=== PATIENT | male | born 1970 | race Caucasian/White ===

== ENCOUNTER 2022-07-18 11:03 | Outpatient (CLI) | payer SELFPAY ==
[2022-07-18 13:59] LABS: Albumin* 4.2 g/dL (3.3-5.0); Chloride* 103 mmol/L (96-114); Potassium* 4.3 mmol/L (3.6-5.1); Sodium* 141 mmol/L (135-149)
[2022-07-18 14:01] LABS: Cholesterol* 143 mg/dL (90-199)
[2022-07-18 14:02] LABS: Alanine Aminotransferase* 62 U/L (4-50); Alkaline Phosphatase* 62 U/L (40-150); Aspartate Amino Transferase* 40 U/L (12-35); Bilirubin Total* 0.8 mg/dL (0.1-1.5); Blood Urea Nitrogen* 20 mg/dL (7-30); Carbon Dioxide* 33 mmol/L (20-32); Creatinine* 1.4 mg/dL (0.5-1.5); Estimated Glomerular Filt Rate 60 ml/min; Glucose* 104 mg/dL (60-115); Total Protein* 7.1 g/dL (6.0-8.3); Triglycerides* 88 mg/dL (40-149)
[2022-07-18 14:03] LABS: HDL Cholesterol* 36 mg/dL (>=40); LDL Cholesterol Calculated 89 mg/dL (<100)
[2022-07-18 14:19] LABS: PSA Screen* 0.85 ng/mL (0.10-4.00)
== END 2022-07-18 11:04 | disposition home or self-care (01) ==
PROVIDERS: PCP Family Medicine; Visit Provider Family Medicine
DX: Z00.00 Encounter for general adult medical examination without abnormal findings (principal); Z12.5 Encounter for screening for malignant neoplasm of prostate; Z13.6 Encounter for screening for cardiovascular disorders
CPT/HCPCS: 80053; 80061; 84153

== ENCOUNTER 2022-07-27 16:34 | Outpatient (CLI) | payer OTHER, SELFPAY ==
[2022-07-27 14:10] LABS: Vitamin B12* 401 pg/mL (243-894)
[2022-07-28 19:07] LABS: Sex Hormone Binding Globulin 38 nmol/L (19-76); Testosterone, Adult Male 501 ng/dL (300-890); Testosterone, Free Calculation 88 pg/mL (47-244); Testosterone, Percentage Free 1.8 % (1.6-2.9)
== END 2022-07-27 16:35 | disposition home or self-care (01) ==
PROVIDERS: PCP Family Medicine; Visit Provider Family Medicine
DX: R53.83 Other fatigue (principal)
CPT/HCPCS: 82607; 82652; 84270; 84402; 84403; 84443

== ENCOUNTER 2023-06-28 14:37 | Emergency (ER) | payer OTHER, SELFPAY ==
[2023-06-28 15:30] VITALS: BP 100/67; PULSE 83; RESP 16; TEMP 35.9; O2SAT 94; BMI 35.9
--- NOTE | 2023-06-28 16:56 | ED.HEATRA ---
HPI - Head Injury General Date Seen: 06/28/23 Chief complaint: Head Injury/Pain Stated complaint: Hit on head Time Seen by Provider: 06/28/23 15:56 Source: patient Mode of arrival: ambulatory Limitations: no limitations History of Present Illness HPI Narrative: Patient is a 53-year-old male presenting to the emergency department forehead laceration. States he was walking up some steps on a ladder when he hit his head on some sheet metal that was hanging over. Denies any other injuries. Is not on any blood thinners. Denies lightheadedness, dizziness, headache, weakness, numbness, vision changes. He has no other concerns at this time. Last tetanus shot was 2016. He is otherwise doing well at this time with no other concerns. Related Data Home Medications Medication Instructions Recorded Confirmed ibuprofen 200 mg tablet 200 mg PO Q6H PRN 05/28/23 05/28/23 Previous Rx's Medication Instructions Recorded amlodipine 5 mg tablet (Norvasc) 5 mg PO QDAY #90 tabs 07/23/22 buspirone 7.5 mg tablet 22.5 mg (3 x 7.5 mg) PO BID #540 07/23/22 tabs fluticasone propionate 50 2 spray intranasal QDAY #16 grams 07/23/22 mcg/actuation nasal spray,suspension (Flonase Allergy Relief) nortriptyline 10 mg capsule 20 mg (2 x 10 mg) PO .QHS #180 caps 07/23/22 paroxetine HCl 20 mg tablet 20 mg PO .QHS #90 tabs 07/23/22 potassium chloride 10 mEq 10 meq PO BID #180 caps 07/23/22 capsule,extended release propranolol 60 mg capsule,24 60 mg PO QHS #90 caps 07/23/22 hr,extended release rosuvastatin 5 mg tablet (Crestor) 5 mg PO QDAY #90 tabs 07/23/22 triamterene 37.5 1 cap PO QDAY #90 caps 07/23/22 mg-hydrochlorothiazide 25 mg capsule bupropion HCl 200 mg tablet,12 hr 200 mg PO BID #180 tabs 04/22/23 sustained-release (Wellbutrin SR) Allergies Allergy/AdvReac Type Severity Reaction Status Date / Time peanut oil Allergy Mild Cough Verified 05/28/23 08:30 Penicillins Allergy Mild Unknown Verified 05/28/23 08:30 Review of Systems Narrative: Pertinent systems negative unless stated in HPI PFSH PFSH Medical History Chronic lymphocytic leukemia ?C91.10 - Chronic lymphocytic leukemia of B-cell type not having achieved remission (ICD-10) Encounter for routine history and physical examination of adult ?Z00.00 - Encounter for general adult medical examination without abnormal findings (ICD-10) Nocturia ?R35.1 - Nocturia (ICD-10) Chronic cough ?R05.3 - Chronic cough (ICD-10) Family History Other Valvular heart disease Social History Smoking Status: Never smoker Caffeine: Yes Little interest or pleasure in doing things: several days Feeling down, depressed, or hopeless: several days Exam Narrative: Exam Narrative: Const: Well-nourished, Well-developed, in mild distress Eyes: PERRL, no conjunctival injection, and symmetrical lids HENT: Atraumatic external nose and ears. Moist mucous membranes. 6 cm laceration on scalp MSK:Extremities w/o deformity, Normal Active ROM Skin: Warm, Dry. 6 cm laceration on scalp Neuro: Normal Muscle tone, No focal neurological deficits. Psych: Awake, Alert, & Oriented x3. Appropriate mood and affect. Const: Vital Signs, click to edit/add: Vital Signs - 24 hr 06/28/23 15:30 Temperature 96.7 F L Pulse Rate [Pulse Oximeter] 83 Respiratory Rate 16 Blood Pressure [Ri ght Upper Arm] 100/67 Pulse Oximetry 94 Oxygen Delivery Me thod Room Air Course Vital Signs Vital signs: Initial Vital Signs Temperature 96.7 F L 06/28/23 15:30 Temperature Source Temporal Artery Scan 06/28/23 15:30 Pulse Rate 83 06/28/23 15:30 Respiratory Rate 16 06/28/23 15:30 Blood Pressure 100/67 06/28/23 15:30 Blood Pressure Mean 78 06/28/23 15:30 Pulse Oximetry 94 06/28/23 15:30 Oxygen Delivery Method Room Air 06/28/23 15:30 Vital Signs Temperature 96.7 F L 06/28/23 15:30 Pulse Rate 83 06/28/23 15:30 Respiratory Rate 16 06/28/23 15:30 Blood Pressure 100/67 06/28/23 15:30 Pulse Oximetry 94 06/28/23 15:30 Oxygen Delivery Method Room Air 06/28/23 15:30 Temperature 96.7 F L 06/28/23 15:30 Pulse Rate 83 06/28/23 15:30 Respiratory Rate 16 06/28/23 15:30 Blood Pressure 100/67 06/28/23 15:30 Pulse Oximetry 94 06/28/23 15:30 Oxygen Delivery Method Room Air 06/28/23 15:30 Discharge Plan Discharge Clinical Impression: Laceration Condition: Stable Instructions: Skin Adhesive Care (ED) Additional Instructions: Glue should wear off in about 7 days. For next 6 months, once wears off, whenever you go outside put a dab of sunscreen over the laceration site to improve scar appearance. Topical antibiotics are not necessary at this time and will cause the glue to fall off sooner than we would want. Do not rub this glue to hard and make sure you not accidentally dropped it off. The antibiotics are not necessary at this time Prescriptions: No Action ibuprofen 200 mg tablet 200 mg PO Q6H PRN propranolol 60 mg capsule,extended release 24 hr 60 mg PO QHS Qty: 90 3RF triamterene-hydrochlorothiazid 37.5-25 mg capsule 1 cap PO QDAY Qty: 90 3RF rosuvastatin [Crestor] 5 mg tablet 5 mg PO QDAY Qty: 90 3RF potassium chloride 10 mEq capsule, extended release 10 meq PO BID Qty: 180 3RF paroxetine HCl 20 mg tablet 20 mg PO .QHS Qty: 90 3RF nortriptyline 10 mg capsule 20 mg PO .QHS Qty: 180 3RF buspirone 7.5 mg tablet 22.5 mg PO BID Qty: 540 3RF amlodipine [Norvasc] 5 mg tablet 5 mg PO QDAY Qty: 90 3RF fluticasone propionate [Flonase Allergy Relief] 50 mcg/actuation spray,suspension 2 spray intranasal QDAY Qty: 16 2RF Rx Instructions: administer into each nostril bupropion HCl [Wellbutrin SR] 200 mg tablet sustained-release 12 hr 200 mg PO BID Qty: 180 0RF Follow Up/Referrals: Yandel Vera MD [Primary Care Provider] - Stand Alone Forms: [facility] Info Instructions
== END 2023-06-28 17:14 | disposition home or self-care (01) ==
LOC: ED 17:06
PROVIDERS: Emergency Provider Student in an Organized Health Care Education/Training Program; PCP Family Medicine
DX: S01.01XA Laceration without foreign body of scalp, initial encounter (principal); W26.9XXA Contact with unspecified sharp object(s), initial encounter
CPT/HCPCS: 12002; 99282; 99283

== ENCOUNTER 2023-08-20 09:08 | Outpatient (RCR) | payer OTHER, SELFPAY ==
[2023-05-28 08:22] LABS: Hematocrit* 50.3 % (37.0-53.0); Hemoglobin* 16.7 gm/dL (13.5-17.5); Lymphocytes Percent Auto 70.2 % (20-44); Mean Corpuscular HGB Conc 33 gm/dL (32-36); Mean Corpuscular Hemoglobin 31 pg (26-34); Mean Corpuscular Volume 93 fL (80-100); Neutrophils Percent Auto 24.2 % (42.0-72.0); Platelet Count* 231 K/uL (140-440); RDW Coefficient of Variation % 12.3 % (11.5-15.5); White Blood Count* 17.34 K/uL (4.50-11.00)
[2023-05-28 08:23] LABS: Basophils Percent Auto 0.3 % (0.0-3.0); Eosinophils Percent Auto 1.3 % (0.0-7.0); Immature Granulocytes Pct Auto 0.1 %; Monocytes Percent Auto 3.9 % (0.0-11.0)
[2023-05-28 08:35] LABS: Slide Review Reflex No
[2023-05-28 08:52] LABS: Albumin* 4.5 g/dL (3.3-5.0); Chloride* 101 mmol/L (96-114); Potassium* 4.1 mmol/L (3.6-5.1); Sodium* 141 mmol/L (135-149)
[2023-05-28 08:54] LABS: Creatinine* 1.4 mg/dL (0.5-1.5); Estimated Glomerular Filt Rate 60 ml/min
[2023-05-28 08:55] LABS: Alanine Aminotransferase* 54 U/L (4-50); Alkaline Phosphatase* 61 U/L (40-150); Anion Gap 7 mEq/L (7-15); Aspartate Amino Transferase* 42 U/L (12-35); Blood Urea Nitrogen* 21 mg/dL (7-30); Carbon Dioxide* 33 mmol/L (20-32); Glucose* 109 mg/dL (60-115); Lactate Dehydrogenase* 206 U/L (120-246); Total Protein* 7.7 g/dL (6.0-8.3)
[2023-05-28 08:56] LABS: Calcium* 8.9 mg/dL (8.4-10.6)
[2023-08-15 15:32] LABS: Basophils Percent Auto 0.3 % (0.0-3.0); Eosinophils Percent Auto 0.6 % (0.0-7.0); Hematocrit* 48.3 % (37.0-53.0); Hemoglobin* 16.6 gm/dL (13.5-17.5); Immature Granulocytes Pct Auto 0.1 %; Lymphocytes Percent Auto 67.1 % (20-44); Mean Corpuscular HGB Conc 34 gm/dL (32-36); Mean Corpuscular Hemoglobin 31 pg (26-34); Mean Corpuscular Volume 91 fL (80-100); Monocytes Percent Auto 4.3 % (0.0-11.0); Neutrophils Percent Auto 27.6 % (42.0-72.0); Platelet Count* 231 K/uL (140-440); RDW Coefficient of Variation % 12.5 % (11.5-15.5); Red Blood Count* 5.29 m/uL (4.30-5.90); White Blood Count* 16.62 K/uL (4.50-11.00)
[2023-08-15 15:55] LABS: Slide Review Reflex No
[2023-08-15 15:56] LABS: Albumin* 4.5 g/dL (3.3-5.0); Chloride* 99 mmol/L (96-114); Potassium* 3.8 mmol/L (3.6-5.1); Sodium* 139 mmol/L (135-149)
[2023-08-15 15:58] LABS: Bilirubin Total* 1.2 mg/dL (0.1-1.5); Creatinine* 1.2 mg/dL (0.5-1.5); Estimated Glomerular Filt Rate 72 ml/min
[2023-08-15 15:59] LABS: Alanine Aminotransferase* 46 U/L (4-50); Alkaline Phosphatase* 68 U/L (40-150); Anion Gap 10 mEq/L (7-15); Aspartate Amino Transferase* 33 U/L (12-35); Blood Urea Nitrogen* 16 mg/dL (7-30); Calcium* 9.6 mg/dL (8.4-10.6); Carbon Dioxide* 30 mmol/L (20-32); Glucose* 95 mg/dL (60-115); Lactate Dehydrogenase* 173 U/L (120-246); Total Protein* 7.8 g/dL (6.0-8.3)
== END 2023-11-24 23:59 | disposition home or self-care (01) ==
LOC: CCIC 09:08
PROVIDERS: PCP Family Medicine; Referring Provider Family Medicine; Visit Provider Internal Medicine Hematology & Oncology
DX: C91.10 Chronic lymphocytic leukemia of B-cell type not having achieved remission
CPT/HCPCS: 36415; 78815; 80053; 83615; 85025; 99213; 99214; G0463; A9552

== ENCOUNTER 2023-09-18 08:10 | Outpatient (CLI) | payer OTHER, SELFPAY | END 2023-09-18 08:11 | disposition home or self-care (01) | LOC: NFLDREF 09-20 06:56 | PROVIDERS: PCP Family Medicine; Referring Provider Family Medicine; Visit Provider Family Medicine | DX: E78.5 Hyperlipidemia, unspecified (principal); Z12.5 Encounter for screening for malignant neoplasm of prostate | CPT/HCPCS: 80061; G0103 ==

== ENCOUNTER 2023-11-18 19:07 | Outpatient (CLI) | payer OTHER, SELFPAY ==
--- NOTE | 2023-12-17 08:52 | W.PM.SLEEP ---
Sleep Study Details Details Interpreting Provider: Portia Date of Sleep Study: 11/18/23 Sleep Study Details: STUDY TYPE:? Home unattended ? BMI:? 36.7 ORDERING PROVIDER:? Portia INDICATION:? Concern about sleep apnea ? SLEEP SUMMARY:? 466 minutes monitored RESPIRATORY SUMMARY:? AHI 39.2, low oxygen 79 51% of study oxygen less than 90% Snoring 93.3% PERIODIC LIMB MOVEMENTS OF SLEEP:? Not recorded CARDIAC:? Range 56-88, mean 66.4 beats per minute IMPRESSION:? Severe obstructive sleep apnea with significant hypo oxygenation RECOMMENDATION: Treatment options include in-lab titration versus AutoSet CPAP
== END 2023-11-18 19:08 | disposition home or self-care (01) ==
LOC: SLEEP 19:08
PROVIDERS: PCP Family Medicine; Visit Provider Otolaryngology
DX: G47.33 Obstructive sleep apnea (adult) (pediatric) (principal)
CPT/HCPCS: 95806

== ENCOUNTER 2024-04-10 09:09 | Outpatient (RCR) | payer OTHER, SELFPAY ==
[2024-04-10 09:23] VITALS: BP 113/72; PULSE 68; RESP 16; TEMP 36.6; O2SAT 94
[2024-04-10 09:39] LABS: Basophils Percent Auto 0.5 % (0.0-3.0); Eosinophils Percent Auto 0.9 % (0.0-7.0); Hematocrit 46.7 % (37.0-53.0); Hemoglobin* 15.9 gm/dL (13.5-17.5); Immature Granulocytes Pct Auto 0.1 %; Lymphocytes Percent Auto 67.4 % (20-44); Mean Corpuscular HGB Conc 34 gm/dL (32-36); Mean Corpuscular Hemoglobin 31 pg (26-34); Mean Corpuscular Volume 92 fL (80-100); Monocytes Percent Auto 4.4 % (0.0-11.0); Neutrophils Percent Auto 26.7 % (42.0-72.0); Platelet Count* 202 K/uL (140-440); RDW Coefficient of Variation % 12.4 % (11.5-15.5); Red Blood Count 5.08 m/uL (4.30-5.90); White Blood Count* 16.18 K/uL (4.50-11.00)
[2024-04-10 09:53] LABS: Albumin* 4.2 g/dL (3.3-5.0)
[2024-04-10 09:54] LABS: Chloride* 100 mmol/L (96-114); Sodium* 137 mmol/L (135-149)
[2024-04-10 09:56] LABS: Alkaline Phosphatase* 56 U/L (40-150); Anion Gap 6 mEq/L (7-15); Aspartate Amino Transferase* 39 U/L (12-35); Bilirubin Total* 0.6 mg/dL (0.1-1.5); Blood Urea Nitrogen* 18 mg/dL (7-30); Carbon Dioxide* 31 mmol/L (20-32); Creatinine* 1.3 mg/dL (0.5-1.5); Estimated Glomerular Filt Rate 65 ml/min; Lactate Dehydrogenase* 189 U/L (120-246); Total Protein* 7.1 g/dL (6.0-8.3)
[2024-04-10 09:57] LABS: Alanine Aminotransferase* 48 U/L (4-50); Calcium* 9.1 mg/dL (8.4-10.6); Glucose* 104 mg/dL (60-115)
[2024-04-10 10:09] LABS: Slide Review Acceptable Review (Acceptable); Slide Review Reflex Yes
--- NOTE | 2024-04-13 15:31 | ONC.NURNOTE ---
Addendum entered by Gaye Todd RN 04/13/24 15:38: lab orders placed for 6 months by this typewriter assembly and parts inspector per Dr Roberts's written order Original Note: 6 month monitoring labs reviewed by Dr Roberts stable results called to Greg garcia appts discussed - due for CBC CMP LDH and MD appt in 6 months patient states he continues to feel poorly that has been ongoing for decades denies any new concerns with fevers, pain or new symptoms patient questions annual follow up- discussed need for physical exam to monitor for disease changes
== END 2024-10-07 23:59 | disposition home or self-care (01) ==
LOC: CCIC 09:09
PROVIDERS: PCP Family Medicine; Referring Provider Family Medicine; Visit Provider Internal Medicine Hematology & Oncology
DX: C91.10 Chronic lymphocytic leukemia of B-cell type not having achieved remission (principal)
CPT/HCPCS: 36415; 80053; 83615; 85025

== ENCOUNTER 2024-11-03 08:54 | Outpatient (RCR) | payer OTHER, SELFPAY ==
[2024-11-03 09:48] LABS: Hematocrit* 46.7 % (37.0-53.0); Hemoglobin* 15.7 gm/dL (13.5-17.5); Immature Granulocytes Pct Auto 0.2 %; Mean Corpuscular HGB Conc 34 gm/dL (32-36); Mean Corpuscular Hemoglobin 31 pg (26-34); Mean Corpuscular Volume 92 fL (80-100); RDW Coefficient of Variation % 12.5 % (11.5-15.5); Red Blood Count* 5.10 m/uL (4.30-5.90); White Blood Count* 17.48 K/uL (4.50-11.00)
[2024-11-03 09:56] LABS: Albumin* 4.1 g/dL (3.3-5.0); Chloride* 102 mmol/L (96-114)
[2024-11-03 09:57] LABS: Potassium* 3.6 mmol/L (3.6-5.1); Sodium* 140 mmol/L (135-149)
[2024-11-03 09:59] LABS: Alanine Aminotransferase* 37 U/L (4-50); Aspartate Amino Transferase* 38 U/L (12-35); Blood Urea Nitrogen* 14 mg/dL (7-30); Creatinine* 1.3 mg/dL (0.5-1.5); Est. Creatinine Clearance* 66.29; Estimated Glomerular Filt Rate 65 ml/min
[2024-11-03 10:00] LABS: Alkaline Phosphatase* 63 U/L (40-150); Anion Gap 8 mEq/L (7-15); Bilirubin Total* 0.6 mg/dL (0.1-1.5); Calcium* 9.0 mg/dL (8.4-10.6); Carbon Dioxide* 30 mmol/L (20-32); Glucose* 116 mg/dL (60-115); Total Protein* 7.2 g/dL (6.0-8.3)
[2024-11-03 10:04] LABS: Immature Granulocytes Abs Auto 0.00 K/uL (0.00-0.30); Lymphocytes Absolute Auto 12.60 K/uL (0.90-2.90); Slide Review Reflex Yes
[2024-11-03 10:41] LABS: Slide Review Acceptable Review (Acceptable)
== END 2025-05-02 23:59 | disposition home or self-care (01) ==
LOC: CCIC 08:54
PROVIDERS: PCP Family Medicine; Referring Provider Family Medicine; Visit Provider Internal Medicine Hematology & Oncology
DX: C91.10 Chronic lymphocytic leukemia of B-cell type not having achieved remission (principal)
CPT/HCPCS: 36415; 80053; 83615; 85025; 99213; 99214; G0463

== ENCOUNTER 2024-12-23 08:03 | Outpatient (CLI) | payer OTHER, SELFPAY | END 2024-12-23 08:04 | disposition home or self-care (01) | LOC: NFLDREF 12-25 15:04 | PROVIDERS: PCP Family Medicine; Referring Provider Family Medicine; Visit Provider Family Medicine | DX: E78.5 Hyperlipidemia, unspecified (principal); I10 Essential (primary) hypertension; Z12.5 Encounter for screening for malignant neoplasm of prostate; E03.9 Hypothyroidism, unspecified; R53.83 Other fatigue; Z79.899 Other long term (current) drug therapy | CPT/HCPCS: 80053; 80061; 82607; 84270; 84402; 84403; 84443; G0103 ==

== ENCOUNTER 2025-02-04 08:15 | Outpatient (CLI) | payer OTHER, SELFPAY | END 2025-02-04 08:16 | disposition home or self-care (01) | LOC: NFLDREF 02-08 16:26 | PROVIDERS: PCP Family Medicine; Referring Provider Family Medicine; Visit Provider Family Medicine | DX: E03.9 Hypothyroidism, unspecified (principal); N28.9 Disorder of kidney and ureter, unspecified | CPT/HCPCS: 80048; 84443 ==

== ENCOUNTER 2025-06-01 16:28 | Outpatient (CLI) | payer OTHER, SELFPAY | END 2025-06-01 16:29 | disposition home or self-care (01) | LOC: NFLDREF 06-07 19:49 | PROVIDERS: PCP Family Medicine; Referring Provider Family Medicine; Visit Provider Internal Medicine Hematology & Oncology | DX: C91.10 Chronic lymphocytic leukemia of B-cell type not having achieved remission (principal) | CPT/HCPCS: 80053; 83615 ==